=== PATIENT | male | born 1965 | race Caucasian/White ===

== ENCOUNTER 2022-10-22 17:10 | Inpatient (IN) | payer OTHER, SELFPAY ==
[2022-10-22] VITALS (7 sets, daily range): BP systolic 167–216; BP diastolic 103–121; PULSE 88–98; RESP 18–32; TEMP 36.4–37.1; O2SAT 94–97; BMI 33.5
--- NOTE | 2022-10-22 | ECG_ITS ---
Test Reason : CP Blood Pressure : / mmHG Vent. Rate : 091 BPM Atrial Rate : 091 BPM P-R Int : 154 ms QRS Dur : 092 ms QT Int : 356 ms P-R-T Axes : 034 -27 017 degrees QTc Int : 437 ms Normal sinus rhythm Possible Left atrial enlargement Cannot rule out Anterior infarct , age undetermined Abnormal ECG No previous ECGs available Referred By: Generic ED Physician Electronically Signed By:See Andrews
--- NOTE | ~2022-10-22 | MR_ITS ---
EXAMINATION: MR ABDOMEN WITHOUT AND WITH CONTRAST CLINICAL INFORMATION: Renal mass COMPARISON: 10/22/2012. TECHNIQUE: MR abdomen was performed without and with use of 10 mL intravenous Gadavist gadolinium contrast. Postcontrast images are performed in multiphase dynamic sequences. Imaging was performed in 3 planes. FINDINGS: LUNG BASES: Atelectasis/consolidation noted at both lung bases. No significant pleural effusion. LIVER, GALLBLADDER, AND BILIARY TREE: The liver is normal in size, smooth in contour, and normal in signal. Mild signal dropout on out of phase imaging, consistent with hepatic steatosis. No focal hepatic lesion or biliary ductal dilatation is present. The gallbladder is unremarkable with no evidence of gallbladder wall thickening, or obvious pericholecystic inflammatory changes. PANCREAS: Unremarkable. SPLEEN: Normal. ADRENAL GLANDS: Normal. KIDNEYS AND URETERS: Normal size and position of the kidneys without hydronephrosis. There is a right upper pole 2.5 x 2.5 x 2.5 cm mass. This has heterogeneous appearance with cystic and solid components. This is mostly solid, showing relatively low signal on T1-weighted imaging and enhancement of the solid components. No signal dropout on the out of phase imaging to suggest a fatty lesion. No additional renal lesion identified. GASTROINTESTINAL TRACT: No bowel obstruction. No ascites or fluid collection. ABDOMINAL WALL: No significant hernia is appreciated. LYMPH NODES: No lymphadenopathy. VASCULAR: Unremarkable. OSSEOUS STRUCTURES: Marrow signal normal. MR/MR abdomen wo/w con IMPRESSION: 1. 2.5 cm right upper pole renal mass with cystic and solid components. This remains concerning for neoplasm. No lymphadenopathy. 2. Mild hepatic steatosis. 3. Atelectasis/consolidation at both lung bases.
--- NOTE | ~2022-10-22 | CT_ITS ---
EXAMINATION: CTA CHEST, ABDOMEN AND PELVIS CLINICAL INFORMATION: Chest pain radiating to back with question of aortic dissection COMPARISON: No pertinent prior studies are available for comparison. TECHNIQUE: Multidetector volumetric imaging was performed from the thoracic inlet through the pubic symphysis both before as well as following administration of 100 mL of Omnipaque 350. Sagittal and coronal reformatted images were obtained on the technologist's workstation. Additional 2-D coronal and sagittal reformatted images and axial 3-D maximum intensity projection MIP images are generated on the CT workstation. This CT examination was performed using dose optimization techniques as appropriate, variously including the following: *Automated exposure control *Adjustment of mA and/or kV according to patient size (this includes techniques or standardized protocols for targeted exams where dose is matched to indication/reason for exam; i.e. extremities or head) *Use of iterative reconstruction technique DLP: 803 mGy-cm VASCULAR FINDINGS: The thoracic aorta and abdominal aorta appear normal. There is no evidence of aneurysm, dissection or intramural hematoma. A three-vessel branching pattern of the aortic arch is seen with widely patent great vessels. The celiac SMA and BRIDGET are all widely patent. There are 2 renal arteries on the right and a single renal artery on the left which are widely patent. Although not carried out for evaluation of the pulmonary arteries or pulmonary veins, no abnormality is seen. No pulmonary emboli are detected. NONVASCULAR FINDINGS: CHEST: Lung: Scattered pulmonary calcified punctate granulomas are present. The lungs are otherwise clear without focal opacity or nodule. Mediastinum: Heart size upper limits of normal. No hilar or mediastinal lymphadenopathy. Coronary Artery Calcification: None visualized on this study. Pericardium/Pleura: No significant effusion. No pleural mass or thickening. Chest Wall/Axilla: Unremarkable ABDOMEN/PELVIS: Peritoneal Space: No significant free air or free fluid identified. Liver, Gallbladder, Biliary Tree: The liver is enlarged at 19.5 cm in cephalocaudad dimension and demonstrates decreased attenuation consistent with hepatic steatosis. In No focal hepatic lesion or biliary ductal dilatation is present. The gallbladder is unremarkable with no evidence of radiopaque gallstones, gallbladder wall thickening, or obvious pericholecystic inflammatory changes. Pancreas: Unremarkable Spleen: Unremarkable Adrenal Glands: Unremarkable Kidneys and Ureters: The kidneys are normal in size, shape, and attenuation. There is a 2.6 cm solid renal mass present at the upper pole of the right kidney. On some of the images, a tiny amount of fat density can be measured. No other renal masses are seen. No hydronephrosis, hydroureter, or calculi seen. No perinephric stranding. Bladder: Unremarkable Gastrointestinal Tract: The small and large bowel are unremarkable. The appendix is unremarkable. Abdominal Wall: Tiny periumbilical hernia seen containing only fat. There is a tiny left inguinal hernia seen containing only fat. Lymph Nodes: No lymphadenopathy. PELVIC VISCERA: Mild BPH. Seminal vesicles normal. OSSEUS STRUCTURES: Mild degenerative changes are noted in the spine. No bony destructive lesions are seen. CT/CT angio abdomen pelvis IMPRESSION: 1. No evidence of aortic dissection or any other acute aortic syndrome. 2. 2.6 cm solid right renal mass. Differential diagnosis would include a renal cell carcinoma, oncocytoma, lipid poor angiomyolipoma, renal cell carcinoma etc. MRI is recommended for further evaluation. 3. Tiny periumbilical and left inguinal hernias containing only fat. 4. Mild BPH. Fleischner guidelines were followed.
[2022-10-22 17:36] LABS: MANUAL DIFF FLAG NO
[2022-10-22 17:42] LABS: Basophils Percent Auto 0.5 % (0-2); Eosinophils Percent Auto 0.1 % (0-4); Hematocrit 41.7 % (42.0-52.0); Hemoglobin 14.2 g/dl (14.0-18.0); Imm Gran Abs Auto 0.02 X10*3/uL (0.00-0.03); Imm Gran Pct Auto 0.2 % (0.0-0.4); Lymphocytes Absolute Auto 1.5 X10*3/uL (1.2-4.9); Lymphocytes Percent Auto 17.4 % (20-40); Mean Corpuscular HGB Conc 34.1 g/dl (31.0-36.0); Mean Corpuscular Hemoglobin 29.6 pg (27.0-33.0); Mean Corpuscular Volume 86.9 fL (80.0-98.0); Mean Platelet Volume 9.9 fL (9.4-12.4); Monocytes Absolute Auto 0.8 X10*3/uL (0.1-1.2); Neutrophils Absolute Auto 6.3 x10*3/uL (2.0-8.3); Neutrophils Percent Auto 72.8 % (45-73); Platelet Count 260 X10*3/uL (160-400); Red Cell Distribution Width 12.2 % (11.0-16.0); White Blood Count 8.6 X10*3/uL (4.8-10.8)
--- NOTE | 2022-10-22 17:45 | ED.CHESTPAIN ---
HPI - Chest Pain General Chief Complaint: Chest Pain Stated Complaint: chest pain Time Seen by Provider: 10/22/22 17:15 History of Present Illness HPI narrative: Patient is a 57-year-old male history of hypertension hypercholesterolemia presents today with having chest pain that goes to the jaw it is a tightness. 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 In the make the symptoms worse. Patient claims the pain also goes to the back. There is no diaphoresis. He has not had any kind of workup. He has not been taking any medication. Has not seen a doctor in about 10 years. No history of any kind of stress test or cardiac catheterization. No family history of coronary disease. No history of smoking. Patient is from home. No history of blood clots in the past no new leg swelling. Related Data Allergies Allergy/AdvReac Type Severity Reaction Status Date / Time No Known Allergies Allergy Verified 10/22/22 17:23 Review of Systems Review of Systems: Positive chest pain PMFSH Past Medical History Attestation statement: The following information was validated with the patient. Social History Social History Alcohol intake: never Smoked in Last 30 Days: No Use of substances other than those prescribed or required for medical reasons: No Advance Directives: No Advance Directives Information Provided: Yes Physical Exam Vital Signs: Vital Signs: Last Vital Signs Temp 97.5 F 10/22/22 20:04 Pulse 88 10/22/22 20:04 Resp 22 H 10/22/22 20:04 BP 167/103 H 10/22/22 20:04 Pulse Ox 94 10/22/22 20:04 O2 Del Method 10/22/22 20:04 BMI result Body Mass Index 33.5 Appearance: Alert. Oriented X3. No acute distress. Eyes: Pupils equal, round and reactive to light. ENT: Pharynx normal. Neck: Normal inspection. Neck supple. No lymph nodes noted. No crepitus CVS: Normal heart rate and rhythm. Pulses normal. Normal S1 and S2 Respiratory: No respiratory distress. Breath sounds normal. No Wheezing. No rales Abdomen: Soft and nontender. No rigidity. No distention. good BS x4 Skin: Skin warm and dry. Normal skin color. Normal skin turgor. Extremities: No lower extremity edema. Neurovascular intact to all extremities. No Lacerations. No Rash Neuro: Oriented X 3. No motor deficit. No sensory deficit. Moving all extermities. No slurred speech Medications Administered Discontinued Medications Generic Name Dose Route Start Last Admin Trade Name Alexa PRN Reason Stop Dose Admin Iohexol 100 ml 10/22/22 18:47 10/22/22 18:47 Iohexol 350 Mg/Ml 100 Ml Infus..Btl IV 10/22/22 18:48 100 ml ONCE ONE Administration Nitroglycerin 0.5 inch 10/22/22 17:48 10/22/22 18:02 Nitroglycerin 2 % Oint 1 Gm Packet TRANSDERMA 10/22/22 17:49 0.5 inch ONCE ONE Administration Medical Decision Making Medical Decision Making [facility] Narrative: Patient has chest pain radiating to the back rain to the jaw brain to the arm with shortness of breath. Differential diagnosis includes abdominal aortic aneurysm dissection, PE, pneumothorax, musculoskeletal, pneumonia, ACS. Patient's CTA of the chest abdomen pelvis was done. No evidence for aortic dissection. His EKG showed a sinus pattern heart rate was 70 MO QRS QT within normal limits is no acute ST segment elevation. Patient does have 2 sets of cardiac enzymes that were negative with a decent story history of hypertension hypercholesterolemia at approximately 58 years old not taking care of himself really comes to the hospital patient's heart score is a 4. Will likely require admission and observation. Patient's CTA of the chest also showed no evidence of pneumonia, pneumothorax. No large PE was noted. An incidental mass was noted in the kidney. This finding was relayed to patient. Will admit patient for further evaluation and observation. Case discussed with hospitalist team. Differential Diagnosis Differential Diagnoses: The differential diagnosis associated with the presentation includes Admission/Observation Consideration of admission/observation: Escalation of care including admission/observation considered Consult Healthcare Provider Management of the patient was discussed with: Hospitalist Lab Data [facility] Lab Attestation statement: I reviewed the patient's lab results. 10/22/22 17:31 10/22/22 17:31 Labs: Lab Results 10/22/22 10/22/22 10/22/22 Range/Units 17:31 17:31 17:31 WBC 8.6 (4.8-10.8) X10*3/uL RBC 4.80 (4.60-5.80) X10*6/uL Hgb 14.2 (14.0-18.0) g/dl Hct 41.7 L (42.0-52.0) % MCV 86.9 (80.0-98.0) fL MCH 29.6 (27.0-33.0) pg MCHC 34.1 (31.0-36.0) g/dl RDW 12.2 (11.0-16.0) % Plt Count 260 (160-400) X10*3/uL MPV 9.9 (9.4-12.4) fL Immature Gran % (Auto) 0.2 (0.0-0.4) % Neut % (Auto) 72.8 (45-73) % Lymph % (Auto) 17.4 L (20-40) % Woodson % (Auto) 9.0 (2-11) % Eos % (Auto) 0.1 (0-4) % Baso % (Auto) 0.5 (0-2) % Lymph # (Auto) 1.5 (1.2-4.9) X10*3/uL Woodson # (Auto) 0.8 (0.1-1.2) X10*3/uL Eos # (Auto) 0.0 (0.0-0.4) X10*3/uL Baso # (Auto) 0.0 (0.0-0.2) X10*3/uL Abs Immat Gran (auto) 0.02 (0.00-0.03) X10*3/uL Absolute Neuts (auto) 6.3 (2.0-8.3) x10*3/uL Absolute Nucleated RBC 0.000 (0.0-0.012) X10*3/uL Nucleated RBC % (auto) 0.0 (0.0-0.2) /100WBC Sodium 141 (135-145) mmol/L Potassium 4.3 (3.3-5.1) mmol/L Chloride 106 (96-108) mmol/L Carbon Dioxide 23 (22-29) mmol/L Anion Gap 16 (12-20) BUN 17 H (9-16) mg/dL Creatinine 1.20 (0.5-1.4) mg/dL Estim Creat Clear Calc 83.1 Estimated GFR > 60 Random Glucose 149 H (60-115) mg/dL Calcium 9.1 (8.4-10.2) mg/dL Total Bilirubin 1.1 H (0.0-1.0) mg/dL AST 16 (5-37) U/L ALT 13 (0-40) U/L Alkaline Phosphatase 60 (39-117) U/L Troponin I High Sens 13.1 (<3.5-35.0) ng/L Total Protein 6.7 (6.5-8.0) g/dL Albumin 4.1 (3.5-5.0) g/dL 10/22/22 Range/Units 19:16 WBC (4.8-10.8) X10*3/uL RBC (4.60-5.80) X10*6/uL Hgb (14.0-18.0) g/dl Hct (42.0-52.0) % MCV (80.0-98.0) fL MCH (27.0-33.0) pg MCHC (31.0-36.0) g/dl RDW (11.0-16.0) % Plt Count (160-400) X10*3/uL MPV (9.4-12.4) fL Immature Gran % (Auto) (0.0-0.4) % Neut % (Auto) (45-73) % Lymph % (Auto) (20-40) % Woodson % (Auto) (2-11) % Eos % (Auto) (0-4) % Baso % (Auto) (0-2) % Lymph # (Auto) (1.2-4.9) X10*3/uL Woodson # (Auto) (0.1-1.2) X10*3/uL Eos # (Auto) (0.0-0.4) X10*3/uL Baso # (Auto) (0.0-0.2) X10*3/uL Abs Immat Gran (auto) (0.00-0.03) X10*3/uL Absolute Neuts (auto) (2.0-8.3) x10*3/uL Absolute Nucleated RBC (0.0-0.012) X10*3/uL Nucleated RBC % (auto) (0.0-0.2) /100WBC Sodium (135-145) mmol/L Potassium (3.3-5.1) mmol/L Chloride (96-108) mmol/L Carbon Dioxide (22-29) mmol/L Anion Gap (12-20) BUN (9-16) mg/dL Creatinine (0.5-1.4) mg/dL Estim Creat Clear Calc Estimated GFR Random Glucose (60-115) mg/dL Calcium (8.4-10.2) mg/dL Total Bilirubin (0.0-1.0) mg/dL AST (5-37) U/L ALT (0-40) U/L Alkaline Phosphatase (39-117) U/L Troponin I High Sens 15.0 (<3.5-35.0) ng/L Total Protein (6.5-8.0) g/dL Albumin (3.5-5.0) g/dL Independent Interpretation I performed an independent interpretation of an: EKG Interpretation: Sinus rhythm Heart rate is 80 MO QRS QTC within normal limits is no acute ST segment elevation noted Radiology Impression Discussion of test interpretation with radiology: I have reviewed the radiologist's reading. Radiologist Impression: Incidental mass noted in the right kidney findings discussed with patient Independent Historian Clinical information obtained from an independent historian. History obtained from or confirmed by: Spouse Chronic Conditions Patient?s care impacted by: Hypertension Discharge Plan Discharge Clinical Impression: Chest pain Patient Disposition: Admitted As Inpatient
[2022-10-22 17:54] LABS: Alanine Aminotransferase 13 U/L (0-40); Albumin Level 4.1 g/dL (3.5-5.0); Alkaline Phosphatase 60 U/L (39-117); Anion Gap 16 (12-20); Aspartate Amino Transferase 16 U/L (5-37); Bilirubin Total 1.1 mg/dL (0.0-1.0); Blood Urea Nitrogen 17 mg/dL (9-16); Calcium 9.1 mg/dL (8.4-10.2); Carbon Dioxide 23 mmol/L (22-29); Chloride 106 mmol/L (96-108); Creatinine Clr Calc Pharmacy 83.1; Estimated Glomerular Filt Rate > 60; Glucose Random 149 mg/dL (60-115); Potassium 4.3 mmol/L (3.3-5.1); Sodium 141 mmol/L (135-145); Total Protein 6.7 g/dL (6.5-8.0)
[2022-10-22 18:00] LABS: Troponin-I High Sensitivity 13.1 ng/L (<3.5-35.0)
[2022-10-22] MEDS: Nitroglycerin 2 % Oint 1 GM Packet 0.5 INCH TRANSDERMA (18:02)
[2022-10-22] MEDS: iohexoL 350 MG/ML 100 ML INFUS..BTL IV (18:47)
--- NOTE | 2022-10-22 20:22 | PM.IMHP ---
History of Present Illness Date of Service: 10/22/22 Chief Complaint: Chest Pain This is a 57-year-old male with pertinent history of essential hypertension, mixed hyperlipidemia who presents to the emergency department for evaluation of chest discomfort. Patient states it started at 10:00 while he was at work. Patient works at a warehouse and lifts heavy objects . Patient stated the chest discomfort was substernal and radiated to the left arm and jaw. Mildly relieved with rest and exacerbated with activity. Patient states his came home at 15:00 and call the ambulance. He received nitroglycerin sublingual via EMS which mildly helped with the pain. Patient states he was diagnosed with essential hypertension but last took antihypertensives about 10 years ago. He has not seen a doctor for more than 10 years. He has also stopped his statin for mixed hyperlipidemia. Patient states he stopped those medications as he had lost weight and his cholesterol and blood pressure was under control but admits to gaining his weight back. 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 No family history of early CAD. No history of chewing or smoking tobacco. Does have associated dyspnea with chest discomfort. No symptoms of acid reflux. Patient denies fever, chills, Palpitations, abdominal pain, changes in urinary or bowel habits in the emergency department, patient's blood pressure initially was 194/121. Review of Systems Constitutional: Constitutional: Reports no additional constitutional complaints Cardiovascular: Cardiovascular: Reports chest pain, Reports chest pain at rest, Reports chest pain with activity and Reports dyspnea on exertion Respiratory: Respiratory: Reports dyspnea on exertion Gastrointestinal: Gastrointestinal: Reports no additional gastrointestinal complaints Genitourinary: Genitourinary: Reports no additional male genitourinary complaints Musculoskeletal: Musculoskeletal: Reports no additional musculoskeletal complaints [facility] Medical History Essential hypertension Mixed hyperlipidemia Pertinent family history: no family history of early CAD Social History Alcohol intake: never Smoked in Last 30 Days: No Use of substances other than those prescribed or required for medical reasons: No Advance Directives: No Advance Directives Information Provided: Yes Meds Allergies Allergy/AdvReac Type Severity Reaction Status Date / Time No Known Allergies Allergy Verified 10/22/22 17:23 Active Medications: Current Medications Amlodipine Besylate (Amlodipine Besylate 5 Mg Tablet) 5 mg PO ONCE ONE; Protocol Stop: 10/22/22 20:22 Pharmacy Consult (Consult Rx Perform Med Rec) 1 each MISCELLANE ONCE PRN PRN Reason: Consult order Home Medications Medication Instructions Recorded Confirmed Last Taken Type No Known Home Meds 10/22/22 10/22/22 Unknown History Physical Exam Vital Signs and Narrative: Vital Signs: Last Vital Signs Temp 97.5 F 10/22/22 20:04 Pulse 88 10/22/22 20:04 Resp 22 H 10/22/22 20:04 BP 167/103 H 10/22/22 20:04 Pulse Ox 94 10/22/22 20:04 O2 Del Method 10/22/22 20:04 BMI result Body Mass Index 33.5 Middle-aged male lying in bed in no distress Neck supple, no JVD Regular rate and rhythm, S1-S2 heard Regular breath sounds bilaterally, no wheezing or crackles appreciated Abdomen soft nontender, no guarding, no rigidity Patient is awake, alert and oriented to self, place, time and person ; no focal motor deficit Psych: Normal mood No pedal edema Results Labs 10/22/22 17:31 10/22/22 17:31 Labs: Laboratory Results - last 24 hr 10/22/22 10/22/22 10/22/22 17:31 17:31 17:31 MCV 86.9 MCH 29.6 MCHC 34.1 RDW 12.2 Plt Count 260 MPV 9.9 Immature Gran % (Auto) 0.2 Neut % (Auto) 72.8 Lymph % (Auto) 17.4 L Humphreys % (Auto) 9.0 Eos % (Auto) 0.1 Baso % (Auto) 0.5 Lymph # (Auto) 1.5 Humphreys # (Auto) 0.8 Eos # (Auto) 0.0 Baso # (Auto) 0.0 Abs Immat Gran (auto) 0.02 Absolute Neuts (auto) 6.3 Absolute Nucleated RBC 0.000 Nucleated RBC % (auto) 0.0 Anion Gap 16 Estim Creat Clear Calc 83.1 Estimated GFR > 60 Random Glucose 149 H Calcium 9.1 Total Bilirubin 1.1 H AST 16 ALT 13 Alkaline Phosphatase 60 Troponin I High Sens 13.1 Total Protein 6.7 Albumin 4.1 10/22/22 19:16 MCV MCH MCHC RDW Plt Count MPV Immature Gran % (Auto) Neut % (Auto) Lymph % (Auto) Humphreys % (Auto) Eos % (Auto) Baso % (Auto) Lymph # (Auto) Humphreys # (Auto) Eos # (Auto) Baso # (Auto) Abs Immat Gran (auto) Absolute Neuts (auto) Absolute Nucleated RBC Nucleated RBC % (auto) Anion Gap Estim Creat Clear Calc Estimated GFR Random Glucose Calcium Total Bilirubin AST ALT Alkaline Phosphatase Troponin I High Sens 15.0 Total Protein Albumin Imaging Radiologist's Impressions: Impressions Abdomen/Pelvis CTA 10/22/22 18:51 IMPRESSION: 1. No evidence of aortic dissection or any other acute aortic syndrome. 2. 2.6 cm solid right renal mass. Differential diagnosis would include a renal cell carcinoma, oncocytoma, lipid poor angiomyolipoma, renal cell carcinoma etc. MRI is recommended for further evaluation. 3. Tiny periumbilical and left inguinal hernias containing only fat. 4. Mild BPH. Fleischner guidelines were followed. Chest CTA 10/22/22 18:52 IMPRESSION: 1. No evidence of aortic dissection or any other acute aortic syndrome. 2. 2.6 cm solid right renal mass. Differential diagnosis would include a renal cell carcinoma, oncocytoma, lipid poor angiomyolipoma, renal cell carcinoma etc. MRI is recommended for further evaluation. 3. Tiny periumbilical and left inguinal hernias containing only fat. 4. Mild BPH. Fleischner guidelines were followed. Assessment and Plan (1) Chest pain: Status: Acute Plan This is a 57-year-old male with pertinent history of essential hypertension, mixed hyperlipidemia who presents to the emergency department for evaluation of chest discomfort. #. chest discomfort, concerning for unstable angina : Will admit patient with cardiac specialist. Initiated on therapeutic Lovenox. Obtaining echo and consulting Cardiology, appreciate assistance. Administered aspirin #. hypertensive urgency/ emergency: Due to noncompliance with antihypertensives. Patient was initiated on nitro patch and given amlodipine in the ER. Normalized blood pressure over 24 hours. optimize antihypertensives at discharge #. Mixed hyperlipidemia: No longer on statin. Obtaining lipid panel #. renal mass, noted on imaging: Obtaining MRI to further delineate anatomy #. obesity: Counseled regarding diet and exercise DVT prophylaxis: Therapeutic Lovenox Cardiac diet Full code Admit as inpatient and will require two night minimum hospital stay for therapeutic Lovenox. Cardiology consult pending Time Spent With Patient Time: Total time managing care of this patient today ____ minutes. Quality Stroke Does the patient have a stroke diagnosis?: No VTE Prior VTE?: No VTE Risk Level:: Medical - moderate - high VTE Device Contraindication: Treatment Not Indicated VTE Drug Contraindication: N/A - Med Ordered
--- NOTE | 2022-10-22 20:54 | PHA.MEDREC ---
Pharmacy Consult ? Medication Reconciliation Pharmacy has completed the medication reconciliation.
--- NOTE | 2022-10-22 21:12 | PC.NURSE ---
O2Sat 93% on RA
--- NOTE | 2022-10-22 21:12 | PC.NURSE ---
pt c/o abd pain, sob placed on O2 NC 2L
--- NOTE | 2022-10-22 21:16 | MHC.CM.PN ---
Met with admitted patient with bed assignment pending. A&O x4. Lives with S.O. Employed. [employer] insurance. No DME/services. No PCP. Has not seen provider in about 10 years. Given [facility] [place] [facility] provider listing. Pfizer x2/booster x2. No HCP. Reviewed, completed and signed. Copies given. Uploaded into [employer] and [facility] Expanse. HCP/S.O. Yancy Feliz ([phone]). D/C plan: Home without services. Will need PCP follow up. Pt to arrange transport home. CM will follow for any discharge needs.
[2022-10-22] MEDS: ondansetron HCL 4 MG/2 ML VIAL IVPUSH (21:22)
[2022-10-22] MEDS: amLODIPine Besylate 5 MG TABLET PO (21:23)
[2022-10-22] MEDS: Aspirin 81 MG TAB.CHEW 324 MG PO (21:31)
[2022-10-22] MEDS: Enoxaparin Sodium 120 MG/0.8 ML SYRINGE 105 MG SUBCUT (21:54)
[2022-10-22 22:16] LABS: COVID-19 Test Negative (Negative); IDNOW Serial# BCCEAD1C
[2022-10-22] MEDS: Labetalol HCL 100 MG/20 ML VIAL 10 MG IVPUSH (22:17)
[2022-10-22] MEDS: Nitroglycerin 2 % Oint 1 GM Packet 1 INCH TRANSDERMA (22:18)
--- NOTE | 2022-10-23 | ECG_ITS ---
Test Reason : WEAKNESS Blood Pressure : / mmHG Vent. Rate : 073 BPM Atrial Rate : 073 BPM P-R Int : 164 ms QRS Dur : 098 ms QT Int : 390 ms P-R-T Axes : 035 -24 008 degrees QTc Int : 429 ms Normal sinus rhythm Possible Left atrial enlargement Minimal voltage criteria for LVH, may be normal variant ( R in aVL ) Cannot rule out Anterior infarct (cited on or before 22-OCT-2022) T waves appear hyperacute on this tracing - repeat ECG to see any evolving changes Abnormal ECG When compared with ECG of 22-OCT-2022 17:43, T wave changes. Referred By: Generic ED Physician Electronically Signed By:See Andrews
--- NOTE | 2022-10-23 | ECG_ITS ---
Test Reason : cp Blood Pressure : / mmHG Vent. Rate : 078 BPM Atrial Rate : 078 BPM P-R Int : 160 ms QRS Dur : 100 ms QT Int : 382 ms P-R-T Axes : 040 -20 020 degrees QTc Int : 435 ms Normal sinus rhythm Inferior infarct (cited on or before 22-OCT-2022) Abnormal ECG When compared with ECG of 23-OCT-2022 01:09, No significant change was found Referred By: See Andrews Electronically Signed By:See Andrews
[2022-10-23] MEDS: Labetalol HCL 100 MG/20 ML VIAL 10 MG IVPUSH (00:56)
[2022-10-23 01:15] LABS: Glucose, Whole Blood 274 mg/dL (60-115)
--- NOTE | 2022-10-23 01:59 | PC.NURSE ---
Report given to KELBY Quiles [facility]
[2022-10-23 02:44] VITALS: BP 163/92; PULSE 80; RESP 18; TEMP 37.1; O2SAT 93
[2022-10-23 04:00] VITALS: BP 168/90; PULSE 87; RESP 18; TEMP 37.1; O2SAT 93
--- NOTE | 2022-10-23 07:00 | CA_ITS ---
Transthoracic Echocardiogram Patient (Last, First, Middle): Javier Briones L Gender: Male Date of : 1965 Age: 57 Procedure Date: 10/23/2022 Procedure Type: Transthoracic Echocardiogram Location: [facility] – [place], [place] Height: 180.34 cm Weight: 108.86 kg BSA: 2.28 m2 Heart Rate: 90 bpm BP: 169 / 92 mmHg Thai Masseur: Referring MD: Sabrina Paulino MD Symptoms: Angina Study Quality: Adequate w contrast ECG Rhythm: Sinus Conclusions: - Normal left ventricular size and systolic function. There is mildly increased left ventricular wall thickness. The visually estimated ejection fraction is between 60-65%. - Elevated filling pressures. - Normal right ventricular cavity size and systolic function. - There is mild dilatation of the ascending aorta measuring 3.50 cm. Findings Procedure Information Contrast agent, definity, is being given per protocol without apparent complications. Left Ventricle Normal left ventricular size and systolic function. There is mildly increased left ventricular wall thickness. The visually estimated ejection fraction is between 60-65%. There is no evidence of regional wall motion abnormalities. Abnormal diastolic function is noted. Spectral Doppler is indicative of an impaired relaxation filling pattern. Elevated filling pressures. Right Ventricle Normal right ventricular cavity size and systolic function. Atria The left atrium is mildly dilated. Aortic Valve Normal aortic valve structure and function. There is no aortic valve stenosis. There is no aortic valve regurgitation. Mitral Valve Normal mitral valve structure and function. There is trace mitral valve regurgitation. There is no mitral valve stenosis. Pulmonic Valve Normal pulmonic valve structure and function. There is no pulmonic valve regurgitation. Tricuspid Valve Normal tricuspid valve structure and function. There is trace tricuspid valve regurgitation. Normal right atrial pressure. There is no evidence of pulmonary hypertension. Great Vessels There is mild dilatation of the ascending aorta measuring 3.50 cm. The visualized portions of the pulmonary artery and branches are normal. Venous The inferior vena cava is normal in size and collapses greater than 50% with inspiration. Pericardium/Pleural There is no evidence of pericardial effusion. Prior Study Comparison No prior study available for comparison. Measurements 2D Linear Measurements IVSd: 1.27 0.6-0.9/0.6-1.0 cm LVIDd: 5.40 3.9-5.3/4.2-5.9 cm LVIDd Index: 2.37 2.4-3.2/2.2-3.1 cm/m2 LVIDs: 2.85 2.0-3.6 cm LVPWd: 1.33 0.7-1.1 cm LA Diam: 3.00 2.7-3.8/3.0-4.0 cm LAIDs Index: 1.32 1.5-2.3 cm/m2 LV Mass: 368.72 67-162/88-224 g LV Mass Index: 161.72 43-95/49-115 g/m2 LVOT Diam: 2.10 3.0+(-)1.3 cm Mitral Valve MV Pk E: 0.90 MV PK A: 1.11 MV Decel Time: 195.00 E/A: 0.80 E'Lateral: 4.13 E'Medial: 6.20 E/E' Med: 14.50 E/E' Lat: 21.80 PHT: 57.00 MVA PHT: 3.86 Decel Towner: 4.62 Aortic Valve AoV Pk Luis: 1.79 AoV Mn Luis: 1.28 AoV VTI: 0.30 AoV Pk Grad: 13.00 Aov Mn Grad: 7.00 ESTHER Cont.VTI: 2.34 LVOT LVOT Pk Luis: 1.19 LVOT Mn Luis: 0.75 LVOT VTI: 0.20 LVOT Pk Grad: 6.00 LVOT Mn Grad: 3.00 LVOT Diam: 2.10 LVOT Area: 3.46 Diastolic Function MV Pk E: 0.90 MV Pk A: 1.11 E/A: 0.80 E'Medial: 6.20 E/E' Med: 14.50 E' Laterial: 4.13 E/E' Lat: 21.80 Right Ventricle TAPSE (mm): 25.40 TVS' Luis: 17.10 Tricuspid Valve TR Pk Luis: 2.27 TR Pk Grad: 21.00 RA Press: 8.00 RVSP: 29.00 Great Vessels Aorta Sinus of Valsalva: 3.10 2.0-3.5 cm Ao Asc: 3.50 2.1-3.4 cm Pulmonary Valve PV Pk Luis: 1.47 Peak PV Grad: 9.00 Updated in Other Vendor System with Status of Final See Andrews MD electronically signed on 10/23/2022 3:08:24 PM with status of Final
[2022-10-23 07:43] LABS: MANUAL DIFF FLAG NO
[2022-10-23 07:48] LABS: Basophils Percent Auto 0.3 % (0-2); Hematocrit 41.6 % (42.0-52.0); Hemoglobin 14.3 g/dl (14.0-18.0); Imm Gran Abs Auto 0.02 X10*3/uL (0.00-0.03); Imm Gran Pct Auto 0.2 % (0.0-0.4); Lymphocytes Absolute Auto 0.9 X10*3/uL (1.2-4.9); Lymphocytes Percent Auto 8.6 % (20-40); Mean Corpuscular HGB Conc 34.4 g/dl (31.0-36.0); Mean Corpuscular Hemoglobin 30.4 pg (27.0-33.0); Mean Corpuscular Volume 88.5 fL (80.0-98.0); Monocytes Absolute Auto 1.1 X10*3/uL (0.1-1.2); Monocytes Percent Auto 11.4 % (2-11); Neutrophils Absolute Auto 7.8 x10*3/uL (2.0-8.3); Neutrophils Percent Auto 79.5 % (45-73); Platelet Count 237 X10*3/uL (160-400); Red Cell Distribution Width 12.4 % (11.0-16.0); White Blood Count 9.9 X10*3/uL (4.8-10.8)
[2022-10-23 07:49] VITALS: BP 169/91; PULSE 90; RESP 20; TEMP 36.7; O2SAT 96
[2022-10-23 08:03] LABS: Anion Gap 14 (12-20); Blood Urea Nitrogen 11 mg/dL (9-16); Calcium 8.8 mg/dL (8.4-10.2); Carbon Dioxide 26 mmol/L (22-29); Chloride 103 mmol/L (96-108); Cholesterol 203 mg/dL; Creatinine Clr Calc Pharmacy 89.9; Estimated Glomerular Filt Rate > 60; Glucose Random 255 mg/dL (60-115); HDL Cholesterol 50 mg/dL; LDL Cholesterol Calculated 128 mg/dl; Potassium 4.7 mmol/L (3.3-5.1); Sodium 138 mmol/L (135-145); Triglycerides 128 mg/dL
[2022-10-23 08:09] LABS: Troponin-I High Sensitivity 9.7 ng/L (<3.5-35.0)
[2022-10-23 08:43] LABS: Estimated Average Glucose 194 mg/dL; Hemoglobin A1c % 8.4 %
[2022-10-23] MEDS: 0.9 % Sodium Chloride Flush 3 ML SYRINGE IVFLUSH ×2 (09:43→16:13)
[2022-10-23] MEDS: Enoxaparin Sodium 120 MG/0.8 ML SYRINGE 105 MG SUBCUT (09:44)
[2022-10-23] MEDS: Melatonin 3 MG TABLET 6 MG PO (09:45)
[2022-10-23] MEDS: Metoprolol Tartrate 25 MG TABLET PO (09:45)
[2022-10-23] MEDS: Atorvastatin Calcium 80 MG TABLET PO (09:45)
[2022-10-23] MEDS: Aspirin 81 MG TAB.CHEW PO (09:45)
[2022-10-23 11:27] VITALS: BP 145/90; PULSE 78; RESP 20; TEMP 36; O2SAT 96
--- NOTE | 2022-10-23 12:49 | HO.PM.IMPN ---
Subjective Subjective Date of Service: 10/23/22 Interval History: chest pain improved somewhat short of breath Review of Systems Review of Systems: Yes all other systems are reviewed and are negative Physical Exam Vital Signs: Vital Signs: Last Vital Signs Temp 96.8 F 10/23/22 11:27 Pulse 78 10/23/22 11:27 Resp 20 10/23/22 11:27 BP 145/90 H 10/23/22 11:27 Pulse Ox 96 10/23/22 11:27 O2 Del Method 10/23/22 11:27 O2 Flow Rate 2 10/23/22 11:27 BMI result Body Mass Index 33.5 Gen: mildly tachypneic HEENT: sclera anicteric, moist mucus membranes Neck: supple Lungs: clear to auscultation bilaterally Heart: regular rate and rhythm, no murmurs Abd: soft, non-tender, non-distended Ext: no edema Skin: warm/well-perfused Neuro: alert and oriented x3, no focal findings Psych: appropriate affect Objective Data Active Medications Acetaminophen (Acetaminophen 325 Mg Tablet) 650 mg PO Q6H PRN PRN Reason: Pain, Mild (Pain Scale 1-3) Aspirin (Aspirin 81 Mg Tab.Chew) 81 mg PO DAILY [facility] Last Admin: 10/23/22 09:45 Dose: 81 mg Documented By: LULA Atorvastatin Calcium (Atorvastatin Calcium 80 Mg Tablet) 80 mg PO DAILY [facility] Last Admin: 10/23/22 09:45 Dose: 80 mg Documented By: LULA Enoxaparin Sodium (Enoxaparin Sodium 120 Mg/0.8 Ml Syringe) 105 mg 1 mg/kg (105 mg) SUBCUT Q12H [facility] Last Admin: 10/23/22 09:44 Dose: 105 mg Documented By: LULA Melatonin (Melatonin 3 Mg Tablet) 6 mg PO BEDTIME PRN PRN Reason: Insomnia Last Admin: 10/23/22 09:45 Dose: 6 mg Documented By: LULA Metoprolol Tartrate (Metoprolol Tartrate 25 Mg Tablet) 25 mg PO BID [facility]; Protocol Last Admin: 10/23/22 09:45 Dose: 25 mg Documented By: LULA Nitroglycerin (Nitroglycerin 0.4 Mg Tab.Subl) 0.4 mg SUBLINGUAL Q5MX3 PRN PRN Reason: Chest Pain Ondansetron HCl (Ondansetron Hcl 4 Mg/2 Ml Vial) 4 mg IVPUSH Q8H PRN PRN Reason: Nausea and Vomiting Pharmacy Consult (Consult Rx Perform Med Rec) 1 each MISCELLANE ONCE PRN PRN Reason: Consult order Sodium Chloride (0.9 % Sodium Chloride Flush 3 Ml Syringe) 3 ml IVFLUSH QSHIFT [facility] Last Admin: 10/23/22 09:43 Dose: 3 ml Documented By: LULA Labs 10/23/22 07:37 10/23/22 07:37 Labs: Laboratory Results - last 24 hr 10/22/22 10/22/22 10/22/22 17:31 17:31 17:31 MCV 86.9 MCH 29.6 MCHC 34.1 RDW 12.2 Plt Count 260 MPV 9.9 Immature Gran % (Auto) 0.2 Neut % (Auto) 72.8 Lymph % (Auto) 17.4 L [place] % (Auto) 9.0 Eos % (Auto) 0.1 Baso % (Auto) 0.5 Lymph # (Auto) 1.5 [place] # (Auto) 0.8 Eos # (Auto) 0.0 Baso # (Auto) 0.0 Abs Immat Gran (auto) 0.02 Absolute Neuts (auto) 6.3 Absolute Nucleated RBC 0.000 Nucleated RBC % (auto) 0.0 Anion Gap 16 Estim Creat Clear Calc 83.1 Estimated GFR > 60 POC Glucose Random Glucose 149 H Estimat Average Glucose Hemoglobin A1c % Calcium 9.1 Total Bilirubin 1.1 H AST 16 ALT 13 Alkaline Phosphatase 60 Troponin I High Sens 13.1 Total Protein 6.7 Albumin 4.1 Triglycerides Cholesterol LDL Cholesterol, Calc HDL Cholesterol COVID-19 (THEO) COVID-19 Clin Com 10/22/22 10/22/22 10/23/22 19:16 21:48 01:08 MCV MCH MCHC RDW Plt Count MPV Immature Gran % (Auto) Neut % (Auto) Lymph % (Auto) [place] % (Auto) Eos % (Auto) Baso % (Auto) Lymph # (Auto) [place] # (Auto) Eos # (Auto) Baso # (Auto) Abs Immat Gran (auto) Absolute Neuts (auto) Absolute Nucleated RBC Nucleated RBC % (auto) Anion Gap Estim Creat Clear Calc Estimated GFR POC Glucose 274 H Random Glucose Estimat Average Glucose Hemoglobin A1c % Calcium Total Bilirubin AST ALT Alkaline Phosphatase Troponin I High Sens 15.0 Total Protein Albumin Triglycerides Cholesterol LDL Cholesterol, Calc HDL Cholesterol COVID-19 (THEO) Negative COVID-19 Clin Com See Note 10/23/22 10/23/22 10/23/22 07:37 07:37 07:37 MCV 88.5 MCH 30.4 MCHC 34.4 RDW 12.4 Plt Count 237 MPV 10.0 Immature Gran % (Auto) 0.2 Neut % (Auto) 79.5 H Lymph % (Auto) 8.6 L [place] % (Auto) 11.4 H Eos % (Auto) 0.0 Baso % (Auto) 0.3 Lymph # (Auto) 0.9 L [place] # (Auto) 1.1 Eos # (Auto) 0.0 Baso # (Auto) 0.0 Abs Immat Gran (auto) 0.02 Absolute Neuts (auto) 7.8 Absolute Nucleated RBC 0.000 Nucleated RBC % (auto) 0.0 Anion Gap 14 Estim Creat Clear Calc 89.9 Estimated GFR > 60 POC Glucose Random Glucose 255 H Estimat Average Glucose Hemoglobin A1c % Calcium 8.8 Total Bilirubin AST ALT Alkaline Phosphatase Troponin I High Sens 9.7 Total Protein Albumin Triglycerides 128 Cholesterol 203 LDL Cholesterol, Calc 128 HDL Cholesterol 50 COVID-19 (THEO) COVID-19 Clin Com 10/23/22 07:37 MCV MCH MCHC RDW Plt Count MPV Immature Gran % (Auto) Neut % (Auto) Lymph % (Auto) [place] % (Auto) Eos % (Auto) Baso % (Auto) Lymph # (Auto) [place] # (Auto) Eos # (Auto) Baso # (Auto) Abs Immat Gran (auto) Absolute Neuts (auto) Absolute Nucleated RBC Nucleated RBC % (auto) Anion Gap Estim Creat Clear Calc Estimated GFR POC Glucose Random Glucose Estimat Average Glucose 194 Hemoglobin A1c % 8.4 Calcium Total Bilirubin AST ALT Alkaline Phosphatase Troponin I High Sens Total Protein Albumin Triglycerides Cholesterol LDL Cholesterol, Calc HDL Cholesterol COVID-19 (THEO) COVID-19 Clin Com Assessment and Plan (1) Chest pain: Status: Acute (2) Renal mass: Status: Acute Plan d#2 57yo M with HTN, HLD presenting with exertional chest discomfort, admitted for suspicion of unstable angina # chest pain - on therapeutic LMWH + ASA + metoprolol + atorvastatin, TTE + Cardiology consult pending; CTA negative for PE # HTN urgency - NTG patch in ED, now on metoprolol # incidental renal mass - MRI to characterize, ddx includes renal cell carcinoma, oncocytoma, lipid poor angiomyolipoma # VTE ppx: LMWH # dispo: TBD Time Spent With Patient Time: Total time managing care of this patient today _36___ minutes. Quality Stroke Does the patient have a stroke diagnosis?: No VTE Prior VTE?: No VTE Risk Level:: Medical - moderate - high VTE Device Contraindication: Treatment Not Indicated VTE Drug Contraindication: N/A - Med Ordered
--- NOTE | 2022-10-23 14:58 | P.CONCA_ITS ---
History of Present Illness History of Present Illness Date of Service: 10/23/22 Requesting physician: Negrita Maldonado Chief complaint: chest pain Narrative: 57-year-old gentleman with background history of hypertension was currently not taking any medications presenting with chest discomfort, jaw discomfort and arm discomfort. He said he started having the symptoms at 10:00 o'clock yesterday. The symptoms would worsen when he did activities. He had chest discomfort for many hours before he came to the emergency department. He was noticed to be significantly hypertensive. He was given labetalol along with oral amlodipine. He was given 324 mg aspirin. He said he was also given nitroglycerin by the EMS which also helped his chest discomfort. Since then his blood pressure has been somewhat better and he has been feeling better too. He has background of hypertension. He is nondiabetic. He does have history of hyperlipidemia. His EKGs have some subtle ST elevations and was EKG has hyper acute appearing T-waves. This was around 01:00 when he was feeling quite sick. Currently denying any significant chest discomfort. He is saying he has been short of breath for many months since he developed COVID-19 infection. Some of his symptoms appear to be related to sleep apnea but he also has dyspnea with exertion. He is describing orthopnea leg episodes too. He has mild peripheral edema. [facility] Past Medical History Medical History Essential hypertension Mixed hyperlipidemia Social History Social History Household Members: Spouse Housing: House Do you presently have visiting nurse or other home services: No Alcohol intake: never Patient Tobacco Use Status: Never used Tobacco Advance Directives Date on File: 10/22/22 service: No Current occupational status: employed Meds Allergies Allergy/AdvReac Type Severity Reaction Status Date / Time No Known Allergies Allergy Verified 10/22/22 17:23 Active Medications: Current Medications Acetaminophen (Acetaminophen 325 Mg Tablet) 650 mg PO Q6H PRN PRN Reason: Pain, Mild (Pain Scale 1-3) Aspirin (Aspirin 81 Mg Tab.Chew) 81 mg PO DAILY [facility] Last Admin: 10/23/22 09:45 Dose: 81 mg Atorvastatin Calcium (Atorvastatin Calcium 80 Mg Tablet) 80 mg PO DAILY [facility] Last Admin: 10/23/22 09:45 Dose: 80 mg Enoxaparin Sodium (Enoxaparin Sodium 120 Mg/0.8 Ml Syringe) 105 mg 1 mg/kg (105 mg) SUBCUT Q12H [facility] Last Admin: 10/23/22 09:44 Dose: 105 mg Glucose (Glucose Gel 15 Gm Gel..Gram.) 15 gm PO Q15M PRN; Protocol PRN Reason: per Hypoglycemia Standing Ord. Dextrose (D10) 250 mls @ 750 mls/hr IV Q15M PRN; Protocol PRN Reason: per Hypoglycemia Standing Ord. Insulin Human Lispro (Insulin Lispro 100 Unit/Ml 3 Ml Vial) 0 unit SUBCUT QIDACHS [facility]; Protocol Melatonin (Melatonin 3 Mg Tablet) 6 mg PO BEDTIME PRN PRN Reason: Insomnia Last Admin: 10/23/22 09:45 Dose: 6 mg Metoprolol Tartrate (Metoprolol Tartrate 25 Mg Tablet) 25 mg PO BID [facility]; Protocol Last Admin: 10/23/22 09:45 Dose: 25 mg Nitroglycerin (Nitroglycerin 0.4 Mg Tab.Subl) 0.4 mg SUBLINGUAL Q5MX3 PRN PRN Reason: Chest Pain Ondansetron HCl (Ondansetron Hcl 4 Mg/2 Ml Vial) 4 mg IVPUSH Q8H PRN PRN Reason: Nausea and Vomiting Pharmacy Consult (Consult Rx Perform Med Rec) 1 each MISCELLANE ONCE PRN PRN Reason: Consult order Sodium Chloride (0.9 % Sodium Chloride Flush 3 Ml Syringe) 3 ml IVFLUSH QSHIFT [facility] Last Admin: 10/23/22 09:43 Dose: 3 ml Home Medications Medication Instructions Recorded Confirmed Last Taken Type No Known Home Meds 10/22/22 10/22/22 Unknown History Physical Exam Vital Signs: Vital Signs: Last Vital Signs Temp 96.8 F 10/23/22 11:27 Pulse 78 10/23/22 11:27 Resp 20 10/23/22 11:27 BP 145/90 H 10/23/22 11:27 Pulse Ox 96 10/23/22 11:27 O2 Del Method 10/23/22 11:27 O2 Flow Rate 2 10/23/22 11:27 BMI result Body Mass Index 33.5 GENERAL APPEARANCE: in no acute distress, pleasant. On supplemental oxygen. NECK: no carotid bruit, mild jugular venous distention. SKIN: no suspicious lesions, warm and dry. HEART: no murmurs, regular rate and rhythm. LUNGS: Crackles left base. ABDOMEN: soft, nontender. EXTREMITIES: Mild edema. PERIPHERAL PULSES: equal. NEUROLOGIC: No gross deficits, AAO X 3 Objective Labs and Meds 10/23/22 07:37 10/23/22 07:37 Lab results: Laboratory Results - last 24 hr 10/22/22 10/22/22 10/22/22 17:31 17:31 17:31 WBC 8.6 RBC 4.80 Hgb 14.2 Hct 41.7 L MCV 86.9 MCH 29.6 MCHC 34.1 RDW 12.2 Plt Count 260 MPV 9.9 Immature Gran % (Auto) 0.2 Neut % (Auto) 72.8 Lymph % (Auto) 17.4 L [place] % (Auto) 9.0 Eos % (Auto) 0.1 Baso % (Auto) 0.5 Lymph # (Auto) 1.5 [place] # (Auto) 0.8 Eos # (Auto) 0.0 Baso # (Auto) 0.0 Abs Immat Gran (auto) 0.02 Absolute Neuts (auto) 6.3 Absolute Nucleated RBC 0.000 Nucleated RBC % (auto) 0.0 Sodium 141 Potassium 4.3 Chloride 106 Carbon Dioxide 23 Anion Gap 16 BUN 17 H Creatinine 1.20 Estim Creat Clear Calc 83.1 Estimated GFR > 60 POC Glucose Random Glucose 149 H Estimat Average Glucose Hemoglobin A1c % Calcium 9.1 Total Bilirubin 1.1 H AST 16 ALT 13 Alkaline Phosphatase 60 Troponin I High Sens 13.1 Total Protein 6.7 Albumin 4.1 Triglycerides Cholesterol LDL Cholesterol, Calc HDL Cholesterol COVID-19 (THEO) COVID-19 Clin Com 10/22/22 10/22/22 10/23/22 19:16 21:48 01:08 WBC RBC Hgb Hct MCV MCH MCHC RDW Plt Count MPV Immature Gran % (Auto) Neut % (Auto) Lymph % (Auto) [place] % (Auto) Eos % (Auto) Baso % (Auto) Lymph # (Auto) [place] # (Auto) Eos # (Auto) Baso # (Auto) Abs Immat Gran (auto) Absolute Neuts (auto) Absolute Nucleated RBC Nucleated RBC % (auto) Sodium Potassium Chloride Carbon Dioxide Anion Gap BUN Creatinine Estim Creat Clear Calc Estimated GFR POC Glucose 274 H Random Glucose Estimat Average Glucose Hemoglobin A1c % Calcium Total Bilirubin AST ALT Alkaline Phosphatase Troponin I High Sens 15.0 Total Protein Albumin Triglycerides Cholesterol LDL Cholesterol, Calc HDL Cholesterol COVID-19 (THEO) Negative COVID-19 Clin Com See Note 10/23/22 10/23/22 10/23/22 07:37 07:37 07:37 WBC 9.9 RBC 4.70 Hgb 14.3 Hct 41.6 L MCV 88.5 MCH 30.4 MCHC 34.4 RDW 12.4 Plt Count 237 MPV 10.0 Immature Gran % (Auto) 0.2 Neut % (Auto) 79.5 H Lymph % (Auto) 8.6 L [place] % (Auto) 11.4 H Eos % (Auto) 0.0 Baso % (Auto) 0.3 Lymph # (Auto) 0.9 L [place] # (Auto) 1.1 Eos # (Auto) 0.0 Baso # (Auto) 0.0 Abs Immat Gran (auto) 0.02 Absolute Neuts (auto) 7.8 Absolute Nucleated RBC 0.000 Nucleated RBC % (auto) 0.0 Sodium 138 Potassium 4.7 Chloride 103 Carbon Dioxide 26 Anion Gap 14 BUN 11 Creatinine 1.11 Estim Creat Clear Calc 89.9 Estimated GFR > 60 POC Glucose Random Glucose 255 H Estimat Average Glucose Hemoglobin A1c % Calcium 8.8 Total Bilirubin AST ALT Alkaline Phosphatase Troponin I High Sens 9.7 Total Protein Albumin Triglycerides 128 Cholesterol 203 LDL Cholesterol, Calc 128 HDL Cholesterol 50 COVID-19 (THEO) COVID-19 Clin Com 10/23/22 07:37 WBC RBC Hgb Hct MCV MCH MCHC RDW Plt Count MPV Immature Gran % (Auto) Neut % (Auto) Lymph % (Auto) [place] % (Auto) Eos % (Auto) Baso % (Auto) Lymph # (Auto) [place] # (Auto) Eos # (Auto) Baso # (Auto) Abs Immat Gran (auto) Absolute Neuts (auto) Absolute Nucleated RBC Nucleated RBC % (auto) Sodium Potassium Chloride Carbon Dioxide Anion Gap BUN Creatinine Estim Creat Clear Calc Estimated GFR POC Glucose Random Glucose Estimat Average Glucose 194 Hemoglobin A1c % 8.4 Calcium Total Bilirubin AST ALT Alkaline Phosphatase Troponin I High Sens Total Protein Albumin Triglycerides Cholesterol LDL Cholesterol, Calc HDL Cholesterol COVID-19 (THEO) COVID-19 Clin Com Imaging Radiologist's impression: Impressions Abdomen/Pelvis CTA 10/22/22 18:51 IMPRESSION: 1. No evidence of aortic dissection or any other acute aortic syndrome. 2. 2.6 cm solid right renal mass. Differential diagnosis would include a renal cell carcinoma, oncocytoma, lipid poor angiomyolipoma, renal cell carcinoma etc. MRI is recommended for further evaluation. 3. Tiny periumbilical and left inguinal hernias containing only fat. 4. Mild BPH. Fleischner guidelines were followed. Chest CTA 10/22/22 18:52 IMPRESSION: 1. No evidence of aortic dissection or any other acute aortic syndrome. 2. 2.6 cm solid right renal mass. Differential diagnosis would include a renal cell carcinoma, oncocytoma, lipid poor angiomyolipoma, renal cell carcinoma etc. MRI is recommended for further evaluation. 3. Tiny periumbilical and left inguinal hernias containing only fat. 4. Mild BPH. Fleischner guidelines were followed. Abdomen MRI 10/23/22 13:22 IMPRESSION: 1. 2.5 cm right upper pole renal mass with cystic and solid components. This remains concerning for neoplasm. No lymphadenopathy. 2. Mild hepatic steatosis. 3. Atelectasis/consolidation at both lung bases. Assessment and Plan (1) Essential hypertension: Status: Acute (2) ACS (acute coronary syndrome): Status: Acute Plan 57-year-old gentleman who is presenting with significantly elevated blood pressures and chest discomfort. His EKG had hyperacute appearing T-waves in the precordial leads as well as some lateral ST elevations at 1 stage. Repeating the EKG again. He is chest pain-free right now. His biomarkers are not elevated. Blood pressure is improving with medications. Echocardiography has shown normal biventricular function. He is being treated appropriately as acute coronary syndrome given significant symptoms and EKG changes and has been on Lovenox. My plan would be to change him to heparin at night as he will likely require cardiac catheterization. Incidentally is been found to have right upper pole renal mass. Abdominal MRI is showing cystic and solid components in mass and malignancy cannot be ruled out. I think currently with his presentation we need to rule out that he does not have any significant coronary disease and that has to be treated before any surgical procedures can be performed safely. If he had moderate disease and my inclination would be to medically treat him. We will arrange transfer to [facility] and do diagnostic angiography tomorrow. Thank you for allowing me to participate in the care of your patient. Please feel free to contact me if you have any questions. Time Spent With Patient Time: Total time managing care of this patient today ____ minutes. Procedures Date of Service Date of Service: 10/23/22
--- NOTE | 2022-10-23 15:15 | PM.DS ---
DS: Providers Provider Date of Service: 10/23/22 Date of admission: 10/22/22 20:20 Date of discharge: 10/23/22 Primary care physician: Bart Brower DO Consults: 10/22/22 20:18 Consult to Cardiology Routine Consulting Provider: [facility] Cardiovascular Services Reason for consultation: Unstable angina Has provider been notified: Yes DS: Transfer Hospital Acceptance Reason for Transfer: cardiac catheterization Name of Facility: [facility] DS: Diagnosis Discharge Diagnosis (1) Chest pain: Status: Acute (2) Renal mass: Status: Acute (3) ACS (acute coronary syndrome): Status: Acute (4) Hypertensive urgency: Status: Acute DS: Summary Hospital Course Hospital Course: from admission H+P by hospitalist Radha Paulino MD, 10/22/22: This is a 57-year-old male with pertinent history of essential hypertension, mixed hyperlipidemia who presents to the emergency department for evaluation of chest discomfort. Patient states it started at 10:00 while he was at work. Patient works at a warehouse and lifts heavy objects . Patient stated the chest discomfort was substernal and radiated to the left arm and jaw. Mildly relieved with rest and exacerbated with activity. Patient states his came home at 15:00 and call the ambulance. He received nitroglycerin sublingual via EMS which mildly helped with the pain. Patient states he was diagnosed with essential hypertension but last took antihypertensives about 10 years ago. He has not seen a doctor for more than 10 years. He has also stopped his statin for mixed hyperlipidemia. Patient states he stopped those medications as he had lost weight and his cholesterol and blood pressure was under control but admits to gaining his weight back. He does not have a cathead operator. No family history of early CAD. No history of chewing or smoking tobacco. Does have associated dyspnea with chest discomfort. No symptoms of acid reflux. Patient denies fever, chills, Palpitations, abdominal pain, changes in urinary or bowel habits in the emergency department, patient's blood pressure initially was 194/121. 57yo M with HTN, HLD not in medical care for close to 10 years presenting with exertional chest discomfort, admitted for suspicion of unstable angina along with hypertensive urgency. EKG had hyperacute T-waves in the precordium. Troponins normal but clinical presentation concerning. He was anticoagulated with enoxaparin, then IV heparin. He was given aspirin, metoprolol, atorvastatin, and nitrates. He was started on amlodipine as well. Cardiology was consulted. He was transferred to [facility] for cardiac catheterization. He was also diagnosed with new-onset DM2 with A1c 8.4 CTA of the chest was negative for PE, but showed an incidental renal mass that on MRI was 2.9 cm with cystic and solid components, concerning for malignancy. He will need urgent Urology referral and workup after discharge from his cardiac catheterization. Time Spent with Patient Time attestation: Total time managing care of this patient today _44___ minutes. Discharge coordination time: Greater than 30 minutes Quality: Safe Use of Opioids Does Pt have an Active Cancer Diagnosis on the Problem List?: No Quality: Stroke Does the patient have a stroke diagnosis?: No Physical Exam Vital Signs: Vital Signs: Last Vital Signs Temp 96.8 F 10/23/22 11:27 Pulse 78 10/23/22 11:27 Resp 20 10/23/22 11:27 BP 145/90 H 10/23/22 11:27 Pulse Ox 96 10/23/22 11:27 O2 Del Method 10/23/22 11:27 O2 Flow Rate 2 10/23/22 11:27 BMI result Body Mass Index 33.5 Gen: mildly tachypneic HEENT: sclera anicteric, moist mucus membranes Neck: supple Lungs: clear to auscultation bilaterally Heart: regular rate and rhythm, no murmurs Abd: soft, non-tender, non-distended Ext: no edema Skin: warm/well-perfused Neuro: alert and oriented x3, no focal findings Psych: appropriate affect DS: Data Data Completed and Pending Completed studies during hospitalization [Text1]: Laboratory Results WBC 9.9 X10*3/uL (4.8-10.8) 10/23/22 07:37 RBC 4.70 X10*6/uL (4.60-5.80) 10/23/22 07:37 Hgb 14.3 g/dl (14.0-18.0) 10/23/22 07:37 Hct 41.6 % (42.0-52.0) L 10/23/22 07:37 MCV 88.5 fL (80.0-98.0) 10/23/22 07:37 MCH 30.4 pg (27.0-33.0) 10/23/22 07:37 MCHC 34.4 g/dl (31.0-36.0) 10/23/22 07:37 RDW 12.4 % (11.0-16.0) 10/23/22 07:37 Plt Count 237 X10*3/uL (160-400) 10/23/22 07:37 MPV 10.0 fL (9.4-12.4) 10/23/22 07:37 Immature Gran % (Auto) 0.2 % (0.0-0.4) 10/23/22 07:37 Neut % (Auto) 79.5 % (45-73) H 10/23/22 07:37 Lymph % (Auto) 8.6 % (20-40) L 10/23/22 07:37 [place] % (Auto) 11.4 % (2-11) H 10/23/22 07:37 Eos % (Auto) 0.0 % (0-4) 10/23/22 07:37 Baso % (Auto) 0.3 % (0-2) 10/23/22 07:37 Lymph # (Auto) 0.9 X10*3/uL (1.2-4.9) L 10/23/22 07:37 [place] # (Auto) 1.1 X10*3/uL (0.1-1.2) 10/23/22 07:37 Eos # (Auto) 0.0 X10*3/uL (0.0-0.4) 10/23/22 07:37 Baso # (Auto) 0.0 X10*3/uL (0.0-0.2) 10/23/22 07:37 Abs Immat Gran (auto) 0.02 X10*3/uL (0.00-0.03) 10/23/22 07:37 Absolute Neuts (auto) 7.8 x10*3/uL (2.0-8.3) 10/23/22 07:37 Absolute Nucleated RBC 0.000 X10*3/uL (0.0-0.012) 10/23/22 07:37 Nucleated RBC % (auto) 0.0 /100WBC (0.0-0.2) 10/23/22 07:37 Sodium 138 mmol/L (135-145) 10/23/22 07:37 Potassium 4.7 mmol/L (3.3-5.1) 10/23/22 07:37 Chloride 103 mmol/L (96-108) 10/23/22 07:37 Carbon Dioxide 26 mmol/L (22-29) 10/23/22 07:37 Anion Gap 14 (12-20) 10/23/22 07:37 BUN 11 mg/dL (9-16) 10/23/22 07:37 Creatinine 1.11 mg/dL (0.5-1.4) 10/23/22 07:37 Estim Creat Clear Calc 89.9 10/23/22 07:37 Estimated GFR > 60 10/23/22 07:37 POC Glucose 274 mg/dL (60-115) H 10/23/22 01:08 Random Glucose 255 mg/dL (60-115) H 10/23/22 07:37 Estimat Average Glucose 194 mg/dL 10/23/22 07:37 Hemoglobin A1c % 8.4 % 10/23/22 07:37 Calcium 8.8 mg/dL (8.4-10.2) 10/23/22 07:37 Total Bilirubin 1.1 mg/dL (0.0-1.0) H 10/22/22 17:31 AST 16 U/L (5-37) 10/22/22 17:31 ALT 13 U/L (0-40) 10/22/22 17:31 Alkaline Phosphatase 60 U/L (39-117) 10/22/22 17:31 Troponin I High Sens 9.7 ng/L (<3.5-35.0) 10/23/22 07:37 Total Protein 6.7 g/dL (6.5-8.0) 10/22/22 17:31 Albumin 4.1 g/dL (3.5-5.0) 10/22/22 17:31 Triglycerides 128 mg/dL 10/23/22 07:37 Cholesterol 203 mg/dL 10/23/22 07:37 LDL Cholesterol, Calc 128 mg/dl 10/23/22 07:37 HDL Cholesterol 50 mg/dL 10/23/22 07:37 COVID-19 (THEO) Negative (Negative) 10/22/22 21:48 COVID-19 Clin Com See Note 10/22/22 21:48 Impressions Abdomen/Pelvis CTA 10/22/22 18:51 IMPRESSION: 1. No evidence of aortic dissection or any other acute aortic syndrome. 2. 2.6 cm solid right renal mass. Differential diagnosis would include a renal cell carcinoma, oncocytoma, lipid poor angiomyolipoma, renal cell carcinoma etc. MRI is recommended for further evaluation. 3. Tiny periumbilical and left inguinal hernias containing only fat. 4. Mild BPH. Fleischner guidelines were followed. Chest CTA 10/22/22 18:52 IMPRESSION: 1. No evidence of aortic dissection or any other acute aortic syndrome. 2. 2.6 cm solid right renal mass. Differential diagnosis would include a renal cell carcinoma, oncocytoma, lipid poor angiomyolipoma, renal cell carcinoma etc. MRI is recommended for further evaluation. 3. Tiny periumbilical and left inguinal hernias containing only fat. 4. Mild BPH. Fleischner guidelines were followed. Abdomen MRI 10/23/22 13:22 IMPRESSION: 1. 2.5 cm right upper pole renal mass with cystic and solid components. This remains concerning for neoplasm. No lymphadenopathy. 2. Mild hepatic steatosis. 3. Atelectasis/consolidation at both lung bases. TTE 10/23/22 Conclusions: - Normal left ventricular size and systolic function. There is ? mildly increased left ventricular wall thickness.? The visually? estimated ejection fraction is between 60-65%. ? - Elevated filling pressures.? - Normal right ventricular cavity size and systolic function.? ? - There is mild dilatation of the ascending aorta measuring 3.50 cm.? Findings Procedure Information Contrast agent, definity, is being given per protocol without apparent complications. Left Ventricle Normal left ventricular size and systolic function. There is mildly increased left ventricular wall thickness.? The visually estimated ejection fraction is between 60-65%.? There is no evidence of regional wall motion abnormalities. Abnormal diastolic function is noted.? Spectral Doppler is indicative of an impaired relaxation filling pattern.? Elevated filling pressures. Discharge Plan Discharge Anticipated Discharge Date/Time: 10/23/22 15:10 Patient Disposition: [facility] Discharge Diagnosis: Chest pain concerning for ACS\ Hypertensive urgency New-onset DM2 Renal mass concerning for malignancy Referrals: Franck Marinelli MD [Physician] - 1 Week Bart Brower DO [Primary Care Provider] - 1 Week Discharge Medications: New nitroglycerin [Nitrostat] 0.4 mg Tablet, Sublingual 0.4 mg sublingual Q5MX3 PRN (Reason: Chest Pain) Qty: 1 0RF metoprolol tartrate 25 mg Tablet 25 mg PO BID Qty: 1 0RF Protocol: Hold for SBP/HR < HOLD for SBP < : 90 HOLD for HR < : 60 insulin lispro [Humalog U-100 Insulin] 100 unit/mL Solution See Protocol subcut QIDACHS Qty: 1 0RF Protocol: Insulin Correction Scale Less than or equal to 110 ---- Give (units): 0 111 to 150 Give (units): 0 151 to 200 Give (units): 2 201 to 250 Give (units): 4 251 to 300 Give (units): 6 301 to 350 Give (units): 8 Greater than 350 Give (units): 10 Call if Blood Glucose > : 350 furosemide 10 mg/mL Solution 20 mg IVPUSH DAILY Qty: 1 0RF Protocol: Hold for SBP< HOLD for SBP < : 90 amlodipine 5 mg Tablet 5 mg PO DAILY Qty: 1 0RF Protocol: Hold for SBP< HOLD for SBP < : 90 heparin(porcine) in 0.45% NaCl 25,000 unit/250 mL Parenteral Solution 25,000 unit continuous IV infusion .Q0M Qty: 1 0RF heparin (porcine) 5,000 unit/mL Solution 4,400 unit IVPUSH PROTOCOL BOLUS PRN (Reason: 40 unit/kg - Heparin Protocol) Qty: 1 0RF heparin (porcine) 5,000 unit/mL Solution 8,700 unit IVPUSH PROTOCOL BOLUS PRN (Reason: 80 Unit/Kg - Heparin Protocol) Qty: 1 0RF aspirin 81 mg Tablet,Chewable 81 mg PO DAILY Qty: 1 0RF atorvastatin 80 mg Tablet 80 mg PO DAILY Qty: 1 0RF No Action No Known Home Meds Discharge Orders: Discharge Order (Routine); Ordered 10/23/22 Ordered By: Negrita Maldonado Diet: Diabetic diet Activity on Discharge: As tolerated Stand Alone Forms: Patient Portal Discharge page Care Plan Goals: Diagnosis of possible coronary syndrome Blood pressure control Avoid diabetic complications Diagnose renal mass Health Concerns: Chest pain concerning for ACS Hypertensive urgency New-onset DM2 Renal mass concerning for malignancy Plan of Treatment: Transfer to [facility] for cardiac catheterization Antihypertensive medications to be determined Diabetic diet, will require medications, likely metformin Urology referral for diagnosis of renal mass Assessment: See Discharge Summary.
--- NOTE | 2022-10-23 15:36 | MHC.CM.PN ---
Patient is being dc/transferred to [facility] today.
[2022-10-23 15:40] VITALS: BP 139/93; PULSE 72; RESP 20; TEMP 37; O2SAT 95; BMI 33.8
[2022-10-23 15:41] LABS: INTERNATIONAL NORM RATIO 1.1 (0.9-1.1); Prothrombin Time 12.5 SEC (10.0-13.1)
[2022-10-23 15:43] LABS: PTT Heparin Drip 37.7 SEC (53-77.9)
[2022-10-23] MEDS: Furosemide 20 MG/2 ML VIAL IVPUSH (16:13)
[2022-10-23] MEDS: amLODIPine Besylate 5 MG TABLET PO (16:13)
[2022-10-23 16:20] LABS: Glucose, Whole Blood 196 mg/dL (60-115)
[2022-10-23] MEDS: Heparin Sodium,Porcine/1/2NS 25,000 UNIT/250 ML IV.SOLN 10 UNIT IVCONT (16:29)
[2022-10-23 16:40] LABS: B Type Natriuretic Peptide 54 pg/mL (<100)
[2022-10-23] MEDS: Insulin Lispro 100 UNIT/ML 3 ML VIAL SUBCUT (18:12)
[2022-10-23 19:48] VITALS: BP 147/86; PULSE 86; RESP 20; TEMP 36.1; O2SAT 94
== END 2022-10-23 21:44 | disposition short-term general hospital (02) | DRG 199 ==
LOC: HO.ED 20:17 → HO.EDOVER 20:27 → HO.IMC 23:05
PROVIDERS: Physician Assistant; Admitting Provider Student in an Organized Health Care Education/Training Program; Emergency Provider Emergency Medicine Emergency Medical Services; PCP Family Medicine; Visit Provider Family Medicine
DX: I16.0 Hypertensive urgency (principal); I24.9 Acute ischemic heart disease, unspecified; E11.9 Type 2 diabetes mellitus without complications; E66.9 Obesity, unspecified; E78.2 Mixed hyperlipidemia; Z68.33 Body mass index [BMI] 33.0-33.9, adult; I10 Essential (primary) hypertension; Z20.822 Contact with and (suspected) exposure to COVID-19; Z91.14 Patient's other noncompliance with medication regimen; Z79.82 Long term (current) use of aspirin; Z79.899 Other long term (current) drug therapy
CPT/HCPCS: 36415; 71275; 74174; 74183; 80048; 80053; 80061; 82947; 83036; 83880; 84484; 85025; 85610; 85730; 87635; 93005; 93306; 99285; A9585; J1643; J1650; J1940; J2405; Q9957; Q9967

== ENCOUNTER → 2022-11-14 14:19 | Outpatient (BNVA) | payer OTHER, SELFPAY | PROVIDERS: PCP Physician Assistant; Visit Provider Internal Medicine Cardiovascular Disease | DX: Z13.89 Encounter for screening for other disorder (principal) ==

== ENCOUNTER 2023-03-04 15:26 | Outpatient (AMB) | payer OTHER, SELFPAY ==
[2023-03-04 15:29] VITALS: BP 155/95; PULSE 77; O2SAT 97; BMI 31.7
--- NOTE | 2023-03-04 15:29 | A.OFFVIS_ITS ---
Intake Vital Signs 03/04/23 15:29 Height 5 ft 11 in Weight 227 lb 1.218 oz BMI 31.7 BP 155/95 H Blood Pressure Location Rt brachial Position Sitting Pulse 77 Pulse Source Pulse Oximeter Pulse Oximetry (%) 97 Oxygen Delivery Method Room Air Intake Visit Reasons: 3 mth f/up Intake Note: Patient is here for a 3 months follow up, patient stated hes doing much better the hydroclorothiazide Allergies No Known Allergies Allergy (Verified 03/04/23 15:33) Medication List - Last Reconciled 03/04/23 by See Andrews MD amlodipine 5 mg See Protocol PO DAILY atorvastatin 40 mg PO DAILY hydrochlorothiazide 25 mg PO DAILY metformin 500 mg PO BID HPI HPI Comments History of Present Illness Details 58-year-old gentleman who is here for f/u. He was seen in the hospital with CP, ECG changes and elevated BP. He underwent diagnostic cardiac cath. This showed mild CAD. He left the hospital with amlodipine. His BP at home has been high. He has random chest discomfort but no clear exertional symptoms. 03/04/2023: He is here for follow-up. He is saying that he has not had any further chest pain since he started taking hydrochlorothiazide. His blood pressure readings are still high. He is taking medications regularly. Further renal mass he has been following with Urology in so far than just monitoring it and no biopsy has been done. [facility] Medical History Essential hypertension Mixed hyperlipidemia Surgical History History of cardiac cath History of tonsillectomy Family History Father Pacemaker Mother Alzheimer's dementia Social History Household Members: Spouse Housing: House Do you presently have visiting nurse or other home services: No Alcohol intake: never Patient Tobacco Use Status: Never used Tobacco Advance Directives Date on File: 10/22/22 service: No Current occupational status: employed Review of Systems Const Denies fatigue, Denies fever(s), Denies frequent falls, Denies weight gain and Denies weight loss ENT Denies dizziness Card Denies chest pain, Denies leg edema, Denies lightheadedness, Denies dyspnea, Denies dyspnea on exertion, Denies orthopnea and Reports other (loss of consciousness) Resp Denies cough, Denies dyspnea and Denies dyspnea on exertion GI Denies hematochezia and Denies change in bowel habits Musc Denies abnormal gait, Denies muscle weakness, Denies numbness, Denies radiating pain into limb and Denies tingling Neuro Denies abnormal gait, Denies dizziness, Denies frequent falls, Denies numbness and Denies tingling Endo Denies fatigue Physical Exam Vital Signs: Last Vital Signs Pulse 77 03/04/23 15:29 BP 155/95 H 03/04/23 15:29 Pulse Ox 97 03/04/23 15:29 Oxygen Delivery Method Room Air 03/04/23 15:29 BMI result Body Mass Index 31.7 GENERAL APPEARANCE: in no acute distress, pleasant. NECK: no carotid bruit, mild jugular venous distention. SKIN: no suspicious lesions, warm and dry. HEART: no murmurs, regular rate and rhythm. LUNGS: clear to auscultation bilaterally. ABDOMEN: soft, nontender. EXTREMITIES: no edema. PERIPHERAL PULSES: equal. NEUROLOGIC: No gross deficits, AAO X 3 Assessment & Plan Assessment & Plan (1) Essential hypertension: Code(s): I10 - Essential (primary) hypertension (2) Mixed hyperlipidemia: Code(s): E78.2 - Mixed hyperlipidemia Plan Pleasant 4 year gentleman here for follow-up. He has hypertension. He is currently taking 5 mg amlodipine and hydrochlorothiazide 25 mg once a day. Blood pressure is elevated I have advised him to increase the amlodipine to 10 mg daily. He has physician visit on March 12 and will have blood pressure checked and and will call us with the blood pressure reading. Otherwise he will see us in office in 3 months. Given hyperlipidemia, he should have at least once a year fasting lipid panel. His target LDL is less than 70 given history of diabetes. If blood pressure continues to be elevated then will increase the hydrochlorothiazide to 25 mg b.i.d.. He should have bi-yearly basic metabolic panels. Thank you for allowing me to participate in the care of your patient. Please feel free to contact me if you have any questions. Medications: New amlodipine 10 mg PO DAILY 90 tabs 3RF Coding Level of Care Code Est Pt Level 4 (94673) Diagnoses Essential hypertension I10 Mixed hyperlipidemia E78.2
== END 2023-03-04 15:46 | disposition home or self-care (01) ==
PROVIDERS: Visit Provider Internal Medicine Cardiovascular Disease
DX: I10 Essential (primary) hypertension (principal); E78.2 Mixed hyperlipidemia
CPT/HCPCS: 99214

== ENCOUNTER → 2023-03-04 15:26 | Outpatient (BNVA) | payer OTHER, SELFPAY | PROVIDERS: Visit Provider Internal Medicine Cardiovascular Disease ==

== ENCOUNTER 2023-06-05 15:06 | Outpatient (AMB) | payer OTHER, SELFPAY ==
--- NOTE | 2023-06-05 15:16 | A.OFFVIS_ITS ---
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 He was seen in the hospital with CP, ECG changes and elevated BP. He underwent diagnostic cardiac cath. This showed mild CAD. He left the hospital with amlodipine. His BP at home has been high. He has random chest discomfort but no clear exertional symptoms. 03/04/2023: He is here for follow-up. Yohana kinney is saying that he has not had any further chest pain since he started taking hydrochlorothiazide. His blood pressure readings are still high. He is taking medications regularly. Further renal mass he has been following with Urology in so far than just monitoring it and no biopsy has been done. 06/05/2023: He returns for follow-up. His blood pressure is elevated. He is taking hydrochlorothiazide 25 mg daily and amlodipine 10 mg daily no chest discomfort shortness of breath. He is saying that he has been eating more salt in his diet than before and we discussed about restricting salt. [facility] Medical History Essential hypertension Mixed hyperlipidemia Surgical History History of tonsillectomy History of cardiac cath Family History Father Pacemaker Mother Alzheimer's dementia Social History Household Members: Spouse Housing: House Do you presently have visiting nurse or other home services: No Alcohol intake: never Patient Tobacco Use Status: Never used Tobacco Advance Directives Date on File: 10/22/22 service: No Current occupational status: employed Physical Exam Vital Signs: Last Vital Signs Pulse 75 06/05/23 15:17 BP 140/78 H 06/05/23 15:17 BMI result Body Mass Index 33.5 GENERAL APPEARANCE: in no acute distress, pleasant. NECK: no carotid bruit, no jugular venous distention. SKIN: no suspicious lesions, warm and dry. HEART: no murmurs, regular rate and rhythm. LUNGS: clear to auscultation bilaterally. ABDOMEN: soft, nontender. EXTREMITIES: no edema. PERIPHERAL PULSES: equal. NEUROLOGIC: No gross deficits, AAO X 3 Assessment & Plan Assessment & Plan (1) Essential hypertension: Code(s): I10 - Essential (primary) hypertension Plan Pleasant 58-year-old gentleman is here for follow-up. Blood pressure is 140/78. He is taking amlodipine 10 mg daily and hydrochlorothiazide 25 mg daily. My initial plan was to increase hydrochlorothiazide twice a day but he drinks lot of water and I am worried about after light issue specially hyponatremia. Adding carvedilol 3.125 mg twice a day. He will continue to monitor his blood pressure and reach out to us if he has high readings in 140s persistently. He will see us back in 4 6 months. Thank you for allowing me to participate in the care of your patient. Please feel free to contact me if you have any questions. Coding Level of Care Code Est Pt Level 3 (15549) Diagnoses Essential hypertension I10
[2023-06-05 15:17] VITALS: BP 140/78; PULSE 75; BMI 33.5
== END 2023-06-05 15:34 | disposition home or self-care (01) ==
PROVIDERS: PCP Physician Assistant; Visit Provider Internal Medicine Cardiovascular Disease
DX: I10 Essential (primary) hypertension (principal)
CPT/HCPCS: 99213

== ENCOUNTER → 2023-06-05 15:06 | Outpatient (BNVA) | payer OTHER, SELFPAY | PROVIDERS: PCP Physician Assistant; Visit Provider Internal Medicine Cardiovascular Disease ==

== ENCOUNTER 2023-10-30 15:28 | Outpatient (AMB) | payer OTHER, SELFPAY ==
--- NOTE | 2023-10-30 15:43 | A.OFFVIS_ITS ---
Intake Vital Signs 10/30/23 15:44 Height 5 ft 11 in Weight 241 lb 2.971 oz BMI 33.6 BP 140/70 H Blood Pressure Location Lt brachial Position Sitting Pulse 68 Intake Visit Reasons: 5 mth f/up Intake Note: pt states that he its doing fine. Environmental Specialist Required: No Accompanied by: Self / Same As Patient Allergies No Known Allergies Allergy (Verified 06/05/23 15:18) Medication List - Last Reconciled 10/30/23 by See Andrews MD amlodipine 10 mg PO DAILY atorvastatin 40 mg PO DAILY carvedilol 3.125 mg PO BID hydrochlorothiazide 25 mg PO DAILY metformin 500 mg PO BID HPI HPI Comments History of Present Illness Details 58-year-old gentleman who is here for f/ u. He was seen in the hospital with CP, ECG changes and elevated BP. He underwent diagnostic cardiac cath. This showed mild CAD. He left the hospital with amlodipine. His BP at home has been high. He has random chest discomfort but no clear exertional symptoms. 03/04/2023: He is here for follow-up. H e is saying that he has not had any further chest pain since he started taking hydrochlorothiazide. His blood pressure readings are still high. He is taking medications regularly. Further renal mass he has been following with Urology in so far than just monitoring it and no biopsy has been done. 06/05/2023: He returns for follow-up. His blood pressure is elevated. He is taking hydrochlorothiazide 25 mg daily and amlodipine 10 mg daily no chest discomfort shortness of breath. He is saying that he has been eating more salt in his diet than before and we discussed about restricting salt. 10/30/2023: He returns for follow-up. He has been doing well. No chest pain or shortness of breath. He is going to go for partial nephrectomy next month. He is taking hydrochlorothiazide, carvedilol and amlodipine. His blood pressure in the office is 140/70. His home blood pressure readings are anywhere from 120s to 130s with occasional 140s. COUNT INCLUDES THE [facility] Medical History Essential hypertension Mixed hyperlipidemia Surgical History History of tonsillectomy History of cardiac cath Family History Father Pacemaker Mother Alzheimer's dementia Social History Household Members: Spouse Housing: House Do you presently have visiting nurse or other home services: No Alcohol intake: never Comment: [facility] Patient Tobacco Use Status: Never used Tobacco Advance Directives Date on File: 10/22/22 service: No Current occupational status: employed Review of Systems Const Denies chills, Denies fatigue, Denies fever(s), Denies frequent falls, Denies weakness, Denies weight gain and Denies weight loss ENT Denies dizziness Card Denies chest pain, Denies leg edema, Denies lightheadedness, Denies palpitations, Denies dyspnea and Denies dyspnea on exertion Resp Denies cough, Denies dyspnea and Denies dyspnea on exertion GI Denies hematochezia Musc Denies abnormal gait, Denies muscle weakness, Denies numbness, Denies radiating pain into limb and Denies tingling Neuro Denies abnormal gait, Denies dizziness, Denies frequent falls, Denies numbness, Denies tingling and Denies weakness Endo Denies fatigue and Denies palpitations Physical Exam Vital Signs: Last Vital Signs Pulse 68 10/30/23 15:44 BP 140/70 H 10/30/23 15:44 BMI result Body Mass Index 33.6 GENERAL APPEARANCE: in no acute distress, pleasant. NECK: no carotid bruit, no jugular venous distention. SKIN: no suspicious lesions, warm and dry. HEART: no murmurs, regular rate and rhythm. LUNGS: clear to auscultation bilaterally. ABDOMEN: soft, nontender. EXTREMITIES: no edema. PERIPHERAL PULSES: equal. NEUROLOGIC: No gross deficits, AAO X 3 Office Procedures EKG Details: Normal sinus rhythm, inferior infarct, QTC 404 milliseconds. [id number], Complete Assessment & Plan Assessment & Plan (1) Essential hypertension: Code(s): I10 - Essential (primary) hypertension (2) Preop cardiovascular exam: Code(s): Z01.810 - Encounter for preprocedural cardiovascular examination Plan Pleasant 58 year gentleman who is here for follow-up. Blood pressure is mildly elevated. I am increasing the carvedilol to 6.25 mg twice a day. He is going to go for partial nephrectomy next month. I think his carvedilol should not be stopped in the perioperative period. He is intermediate risk for perioperative cardiovascular complications. Renal cell cancer sometime least 2 hypertension and as he gets nephrectomy we will see how his blood pressure responds to it. He will see us back in few months. Thank you for allowing me to participate in the care of your patient. Please feel free to contact me if you have any questions. Medications: New carvedilol must administer with a meal/food 6.25 mg PO BID 180 tabs 3RF Discontinued carvedilol must administer with a meal/food Discontinued Reason: None 3.125 mg PO BID 60 tabs 5RF Coding Level of Care Code Est Pt Level 4 (82630) Diagnoses Essential hypertension I10 Preop cardiovascular exam Z01.810 CPT Codes EKG - CPT: 37213-[id number], Complete ([id number])
[2023-10-30 15:44] VITALS: BP 140/70; PULSE 68; BMI 33.6
== END 2023-10-30 16:08 | disposition home or self-care (01) ==
PROVIDERS: PCP Physician Assistant; Visit Provider Internal Medicine Cardiovascular Disease
DX: I10 Essential (primary) hypertension (principal); Z01.810 Encounter for preprocedural cardiovascular examination
CPT/HCPCS: 93010; 99214

== ENCOUNTER → 2023-10-30 15:28 | Outpatient (BNVA) | payer OTHER, SELFPAY | PROVIDERS: PCP Physician Assistant; Visit Provider Internal Medicine Cardiovascular Disease | DX: Z01.810 Encounter for preprocedural cardiovascular examination (principal); I10 Essential (primary) hypertension; Z79.899 Other long term (current) drug therapy | CPT/HCPCS: 93005 ==

== ENCOUNTER 2024-04-27 15:18 | Outpatient (AMB) | payer OTHER, SELFPAY ==
[2024-04-27 15:37] VITALS: BP 120/72; PULSE 72; BMI 33.2
--- NOTE | 2024-04-27 15:37 | A.OFFVIS_ITS ---
Vital Signs 04/27/24 15:37 Height 5 ft 11 in Weight 238 lb 1.588 oz BMI 33.2 BP 120/72 Blood Pressure Location Lt brachial Position Sitting Pulse 72 Pulse Source Pulse Oximeter Intake Visit Reasons: 6 mth f/up Claim Processor Required: No Accompanied by: Self / Same As Patient Allergies No Known Allergies Allergy (Verified 06/05/23 15:18) Medication List - Last Reconciled 04/27/24 by See Andrews MD amlodipine 10 mg PO DAILY atorvastatin 40 mg PO DAILY carvedilol 6.25 mg PO BID empagliflozin (Jardiance) 25 mg PO DAILY hydrochlorothiazide 25 mg PO DAILY HPI Comments Details: 58-year-old gentleman who is here for f/u. He was seen in the hospital with CP, ECG changes and elevated BP. He underwent diagnostic cardiac cath. This showed mild CAD. He left the hospital with amlodipine. His BP at home has been high. He has random chest discomfort but no clear exertional symptoms. 03/04/2023: He is here for follow-up. He is saying that he has not had any fu rther chest pain since he started taking hydrochlorothiazide. His blood pressure readings are still high. He is taking medications regularly. Further renal mass he has been following with Urology in so far than just monitoring it and no biopsy has been done. 06/05/2023: He returns for follow-up. His blood pressure is elevated. He is taking hydrochlorothiazide 25 mg daily and amlodipine 10 mg daily no chest discomfort shortness of breath. He is saying that he has been eating more salt in his diet than before and we discussed about restricting salt. 10/30/2023: He returns for follow-up. He has been doing well. No chest pain or shortness of breath. He is going to go for partial nephrectomy next month. He is taking hydrochlorothiazide, carvedilol and amlodipine. His blood pressure in the office is 140/70. His home blood pressure readings are anywhere from 120s to 130s with occasional 140s. 04/27/2024: He is here for follow-up. He is status post partial nephrectomy at this stage. He has done well. His blood pressure is well controlled. He has been walking regularly without any symptoms. Overall doing great. [facility] Medical History (Updated 10/30/23 @ 16:07 by See Andrews MD) Mixed hyperlipidemia Essential hypertension Surgical History H/O right nephrectomy History of tonsillectomy History of cardiac cath Family History Father Pacemaker Mother Alzheimer's dementia Social History Household Members: Spouse Housing: House Do you presently have visiting nurse or other home services: No [place] intake: [place] [facility] [place] Tobacco Use Status: Never used Tobacco Advance Directives Date on File: 10/22/22 service: No Current occupational status: employed [employer] Denies chills, Denies fatigue, Denies fever(s), Denies frequent falls, Denies weakness, Denies weight gain and Denies weight loss ENT Denies dizziness Card Denies chest pain, Denies leg edema, Denies lightheadedness, Denies palpita tions, Denies dyspnea and Denies dyspnea on exertion Resp Denies cough, Denies dyspnea and Denies dyspnea on exertion GI Denies hematochezia Musc Denies abnormal gait, Denies muscle weakness, Denies numbness, Denies radiating pain into limb and Denies tingling Neuro Denies abnormal gait, Denies dizziness, Denies frequent falls, Denies numbness, Denies tingling and Denies weakness Endo Denies fatigue and Denies palpitations Physical Exam Vital Signs: Last Vital Signs Pulse 72 04/27/24 15:37 BP 120/72 04/27/24 15:37 BMI result Body Mass Index 33.2 GENERAL APPEARANCE: in no acute distress, pleasant. NECK: no carotid bruit, no jugular venous distention. SKIN: no suspicious lesions, warm and dry. HEART: no murmurs, regular rate and rhythm. LUNGS: clear to auscultation bilaterally. ABDOMEN: soft, nontender. EXTREMITIES: no edema. PERIPHERAL PULSES: equal. NEUROLOGIC: No gross deficits, AAO X 3 Assessment & Plan Assessment & Plan (1) Essential hypertension: Code(s): I10 - Essential (primary) hypertension Category: Medical (2) Mixed hyperlipidemia: Code(s): E78.2 - Mixed hyperlipidemia Category: Medical Plan Pleasant 59-year-old gentleman who is here for follow-up. He has background history of hypertension and diabetes. Blood pressure is well controlled on amlodipine, hydrochlorothiazide and carvedilol. He has hyperlipidemia and is currently on atorvastatin. He should have fasting lipid panel once a year. Given diabetes I would target LDL less than 70. He is on Jardiance now. I have advised him that if he has any urinary complaints he should get in touch with us or his primary care physician because there is some risk of urinary tract infections with Jardiance. Follow-up with us in 6 months. Thank you for allowing me to participate in the care of your patient. Please feel free to contact me if you have any questions. Coding Level of Care Code Est Pt Level 4 (13911) Diagnoses Essential hypertension I10 Mixed hyperlipidemia E78.2
== END 2024-04-27 15:58 | disposition home or self-care (01) ==
PROVIDERS: PCP Physician Assistant; Visit Provider Internal Medicine Cardiovascular Disease
DX: I10 Essential (primary) hypertension (principal); E78.2 Mixed hyperlipidemia
CPT/HCPCS: 99214

== ENCOUNTER → 2024-04-27 15:18 | Outpatient (BNVA) | payer OTHER, SELFPAY | PROVIDERS: PCP Physician Assistant; Visit Provider Internal Medicine Cardiovascular Disease ==

== ENCOUNTER 2024-10-19 15:34 | Outpatient (AMB) | payer OTHER, SELFPAY ==
--- NOTE | 2024-10-19 16:01 | A.OFFVIS_ITS ---
Vital Signs 10/19/24 16:04 Height 5 ft 11 in Weight 236 lb 5.369 oz BMI 33.0 BP 140/74 H Blood Pressure Location Lt brachial Position Sitting Pulse 67 Pulse Source Monitor Intake Visit Reasons: 6 mth f/up Intake Note: 6 mth f/up Clinical Application Manager Required: No Accompanied by: Self / Same As Patient Allergies No Known Allergies Allergy (Verified 06/05/23 15:18) Medication List - Last Reconciled 10/19/24 by See Andrews MD amlodipine 10 mg PO DAILY atorvastatin 40 mg PO DAILY carvedilol 6.25 mg PO BID empagliflozin (Jardiance) 25 mg PO DAILY hydrochlorothiazide 25 mg PO DAILY HPI Comments Details: 59-year-old gentleman who is here for f/u. He was seen in the hospital with CP, ECG changes and elevated BP. He underwent diagnostic cardiac cath. This showed mild CAD. He left the hospital with amlodipine. His BP at home has been high. He has random chest discomfort but no clear exertional symptoms. 03/04/2023: He is here for follow-up. He is saying that he has not had any further chest pain since he started taking hydrochlorothiazide. His blood pressure readings are still high. He is taking medications regularly. Further renal mass he has been following with Urology in so far than just monitoring it and no biopsy has been done. 06/05/2023: He returns for follow-up. His blood pressure is elevated. He is taking hydrochlorothiazide 25 mg daily and amlodipine 10 mg daily no chest discomfort shortness of breath. He is saying that he has been eating more salt in his diet than before and we discussed about restricting salt. 10/30/2023: He returns for follow-up. He has been doing well. No chest pain or shortness of breath. He is going to go for partial nephrectomy next month. He is taking hydrochlorothiazide, carvedilol and amlodipine. His blood pressure in the office is 140/70. His home blood pressure readings are anywhere from 120s to 130s with occasional 140s. 04/27/2024: He is here for follow-up. He is status post partial nephrectomy at this stage. He has done well. His blood pressure is well controlled. He has been walking regularly without any symptoms. Overall doing great. 10/19/2024: Here for follow-up. Blood pressure mildly elevated on follow-up. He has log of blood pressures from home which are normal. [facility] Medical History (Updated 10/30/23 @ 16:07 by See Andrews MD) Mixed hyperlipidemia Essential hypertension Surgical History H/O right nephrectomy History of tonsillectomy History of cardiac cath Family History Father Pacemaker Mother Alzheimer's dementia Social History Household Members: Spouse Housing: House Do you presently have visiting nurse or other home services: No Alcohol intake: never Comment: [facility] [place] Patient Tobacco Use Status: Never used Tobacco Advance Directives Date on File: 10/22/22 service: No Current occupational status: employed [employer] Denies chills, Denies fatigue, Denies fever(s), Denies frequent falls, Denies weakness, Denies weight gain and Denies weight loss ENT Denies dizziness Card Denies chest pain, Denies leg edema, Denies lightheadedness, Denies pal pitations, Denies dyspnea and Denies dyspnea on exertion Resp Denies cough, Denies dyspnea and Denies dyspnea on exertion GI Denies hematochezia Musc Denies abnormal gait, Denies muscle weakness, Denies numbness, Denies radiating pain into limb and Denies tingling Neuro Denies abnormal gait, Denies dizziness, Denies frequent falls, Denies numbness, Denies tingling and Denies weakness Endo Denies fatigue and Denies palpitations Physical Exam Vital Signs: Last Vital Signs Pulse 67 10/19/24 16:04 BP 140/74 H 10/19/24 16:04 BMI result Body Mass Index 33.0 GENERAL APPEARANCE: in no acute distress, pleasant. NECK: no carotid bruit, no jugular venous distention. SKIN: no suspicious lesions, warm and dry. HEART: no murmurs, regular rate and rhythm. LUNGS: clear to auscultation bilaterally. ABDOMEN: soft, nontender. EXTREMITIES: no edema. PERIPHERAL PULSES: equal. NEUROLOGIC: No gross deficits, AAO X 3 Office Procedures EKG Details: Sinus rhythm 67 beats per minute, inferior infarct, poor R-wave progression, QTC 422 milliseconds. [id number], Complete Assessment & Plan Assessment & Plan (1) Essential hypertension: Code(s): I10 - Essential (primary) hypertension Category: Medical (2) Mixed hyperlipidemia: Code(s): E78.2 - Mixed hyperlipidemia Category: Medical Plan Pleasant 59-year-old gentleman who is here for follow-up. He has background history of hypertension and diabetes. Blood pressure is well controlled on amlodipine, hydrochlorothiazide and carvedilol. He has hyperlipidemia and is currently on atorvastatin. He should have fasting lipid panel once a year. Given diabetes I would target LDL less than 70. Blood pressure mildly elevated in the office. Home readings are all in 120s to 130s. Not adjusting medicines currently. He will continue to monitor and if he noticed any rise in blood pressure then he will reach out to us. Follow up with us in 1 year. Thank you for allowing me to participate in the care of your patient. Please feel free to contact me if you have any questions. Coding Level of Care Code Est Pt Level 4 (68159) Diagnoses Essential hypertension I10 Mixed hyperlipidemia E78.2 CPT Codes EKG - CPT: 45109-[id number], Complete ([id number])
[2024-10-19 16:04] VITALS: BP 140/74; PULSE 67; BMI 33.0
== END 2024-10-19 16:21 | disposition home or self-care (01) ==
PROVIDERS: PCP Physician Assistant; Visit Provider Internal Medicine Cardiovascular Disease
DX: I10 Essential (primary) hypertension (principal); E78.2 Mixed hyperlipidemia
CPT/HCPCS: 93010; 99214

== ENCOUNTER → 2024-10-19 15:34 | Outpatient (BNVA) | payer OTHER, SELFPAY | PROVIDERS: PCP Physician Assistant; Visit Provider Internal Medicine Cardiovascular Disease | DX: I10 Essential (primary) hypertension (principal); E78.2 Mixed hyperlipidemia; Z79.899 Other long term (current) drug therapy | CPT/HCPCS: 93005 ==